=== PATIENT | male | born 1950 | race Caucasian/White ===

== ENCOUNTER 2016-08-26 07:00 | Inpatient (IN) | payer MEDICARE ==
[~2016-08-26] VITALS: Ht 180 cm; Wt 108.0 kg
[2016-08-30 05:38] LABS: HCT 37.3 % (42.0-52.0); HGB 12.6 g/dl (13.2-18.0); MCH 30.7 pg (25.0-31.0); MCHC 33.8 g/dL (32.0-36.0); MPV 10.2 fL (6.0-9.5); RBC 4.1 M/uL (4.70-6.00); RDW 13.1 % (11.5-14.0); WBC 6.8 K/uL (4.0-10.5)
[2016-08-30 06:01] LABS: CREATININE 0.9 mg/dL (0.7-1.2); POTASSIUM 4.3 mmol/L (3.5-5.1)
[2016-08-31 05:19] LABS: HCT 33.2 % (42.0-52.0); HGB 11.4 g/dl (13.2-18.0); MCH 31.2 pg (25.0-31.0); MCHC 34.3 g/dL (32.0-36.0); MPV 10.4 fL (6.0-9.5); RBC 3.65 M/uL (4.70-6.00); RDW 13.1 % (11.5-14.0); WBC 7.2 K/uL (4.0-10.5)
[2016-08-31 05:36] LABS: CREATININE 0.8 mg/dL (0.7-1.2); POTASSIUM 4.3 mmol/L (3.5-5.1)
[2016-08-31 17:08] LABS: BILIRUBIN NEGATIVE (NEGATIVE); BLOOD NEGATIVE Ery/uL (NEGATIVE); CLARITY CLEAR (CLEAR); COLOR YELLOW (YELLOW); GLUCOSE (U) NORMAL (NORMAL); KETONE (U) NEGATIVE (NEGATIVE); LEUKOCYTES NEGATIVE Leu/uL (NEGATIVE); NITRITE NEGATIVE (NEGATIVE); PROTEIN NEGATIVE (NEGATIVE); UROBILINOGEN 0.2 mg/dL (0.2-1.0)
[2016-09-01 06:38] LABS: HCT 33.2 % (42.0-52.0); HGB 11.5 g/dl (13.2-18.0); MCH 31.4 pg (25.0-31.0); MCHC 34.6 g/dL (32.0-36.0); MCV 90.7 fL (78.0-100.0); MPV 10.3 fL (6.0-9.5); RBC 3.66 M/uL (4.70-6.00); RDW 12.9 % (11.5-14.0); WBC 8.5 K/uL (4.0-10.5)
[2016-09-09] MEDS ORDERED: ACETAMINOPHEN325 MG PO (07:31)
[2016-09-09] MEDS ORDERED: COLACE100 MG PO (07:44)
[2016-09-09] MEDS ORDERED: BACLOFEN 10MG T10 MG PO (07:45)
[2016-09-09] MEDS ORDERED: FEOSOL325 MG PO (07:45)
[2016-09-09] MEDS ORDERED: ZESTRIL2.5 MG PO (07:46)
[2016-09-09] MEDS ORDERED: ASPIRIN325 MG PO (07:46)
[2016-09-09] MEDS ORDERED: MOBIC7.5 MG PO (07:46)
[2016-09-09] MEDS ORDERED: OXYCODONE HCL15 MG PO (07:46)
[2016-09-09] MEDS ORDERED: PRILOSEC20 MG PO (07:47)
[2016-09-09] MEDS ORDERED: LAXATIVE5 MG PO (07:47)
== END 2016-09-01 15:35 | DRG 470 ==
LOC: FMS 08:00
PROVIDERS: Internal Medicine; ADMIT Legal Medicine
PROC: 8E0YXBZ Computer Assisted Procedure of Lower Extremity (ICD-10-PCS; 2016-08-29)
PROC: 0SRC0J9 Replacement of Right Knee Joint with Synthetic Substitute, Cemented, Open Approach (ICD-10-PCS; principal; 2016-08-29 11:30)
DX: M17.11 Unilateral primary osteoarthritis, right knee (principal); I10 Essential (primary) hypertension; M21.061 Valgus deformity, not elsewhere classified, right knee; N40.0 Benign prostatic hyperplasia without lower urinary tract symptoms; Z88.5 Allergy status to narcotic agent; G89.29 Other chronic pain; G47.33 Obstructive sleep apnea (adult) (pediatric); Z79.82 Long term (current) use of aspirin; Z22.322 Carrier or suspected carrier of Methicillin resistant Staphylococcus aureus
CPT/HCPCS: 36415; 73560; 80048; 81001; 86850; 86900; 86901; 87088; 88311; 94010; 94760; 94762; 97110; 97116; 97162; 97165; 97530; 97530-GP; 97535; C1713; C1776; J0131; J0697; J1170; J1885; J2405; J2704; J2795; J3010; J3370